=== PATIENT | male | born 1995 | race Two or more races ===

== ENCOUNTER 2023-09-25 16:05 | Emergency (ER) | payer OTHER ==
[~2023-09-25] VITALS: Ht 188 cm; Wt 127.5 kg
[2023-09-25 17:53] LABS: Basophils # (auto) 0.1 10 ^3/uL (0-0.2); Basophils % (auto) 0.4 % (0.0-2.0); Eosinophils # (auto) 0.2 10 ^3/uL (0-0.8); Eosinophils % (auto) 1.5 % (0.0-7.0); Hematocrit 43.2 % (41.0-53.0); Lymphocytes # (auto) 3.5 10 ^3/uL (0.4-5.4); Lymphocytes % (auto) 29.7 % (10.0-50.0); Mean Corpuscular Hgb Conc. 32.4 g/dL (32.0-36.0); Mean Corpuscular Volume 86.5 fL (80.0-100.0); Monocytes # (auto) 0.8 10 ^3/uL (0-1.3); Monocytes % (auto) 7.1 % (0.0-12.0); Neutrophils # (auto) 7.3 10 ^3/uL (1.6-8.6); Neutrophils % (auto) 61.3 % (37.0-80.0); Nucleated Red Blood Cells % 0.1 %; Red Cell Distribution Width 13.2 % (11.8-14.3); White Blood Cell 11.9 10^3/uL (4.4-10.8)
[2023-09-25 18:07] LABS: Alanine Aminotransferase 24 U/L (7-40); Albumin 4.9 g/dL (3.2-4.8); Alkaline Phosphatase 120 U/L (46-116); Anion Gap 4 (5-15); Aspartate Aminotransferase 15 U/L (13-40); BUN/Creatinine Ratio 8.3 (10.0-20.0); Blood Urea Nitrogen 6 mg/dL (9-23); Calcium 9.2 mg/dL (8.7-10.4); Carbon Dioxide 27 mmol/L (20-30); Chloride 103 mmol/L (98-107); Glucose 101 mg/dL (74-106); Lipase 30 U/L (12-53); Potassium 4.6 mmol/L (3.5-5.1); Sodium 134 mmol/L (136-145)
[2023-09-25 18:08] LABS: Bilirubin, Total 0.4 mg/dL (0.2-1.0); Total Protein 7.9 g/dL (5.7-8.2)
[2023-09-25 18:23] LABS: Urine Bacteria NONE SEEN /hpf (None Seen); Urine Blood Negative /uL (Negative); Urine Clarity Clear (Clear); Urine Color Yellow (Yellow); Urine Protein, UAD Negative (Negative); Urine Urobilinogen Normal (Negative); Urine WBC 3 /hpf (0 - 3)
[2023-09-25] MEDS ORDERED: OMEP-448 PO (21:27)
[2023-09-25] MEDS ORDERED: ZOFR4T PO (21:27)
[2023-09-25] MEDS ORDERED: LIDOCAINE VISCOUS 2% 15ML UD MT ONE (21:30)
[2023-09-25] MEDS ORDERED: MAALOX PLUS or MAALOX 30 ML PO ONE (21:30)
[2023-09-25 21:41] VITALS: BP 114/69; PULSE 79; RESP 20; TEMP 98.4; O2SAT 99
== END 2023-09-25 21:50 | disposition home or self-care (01) ==
LOC: ER 16:05
DX: K52.9 Noninfective gastroenteritis and colitis, unspecified (principal); K27.9 Peptic ulcer, site unspecified, unspecified as acute or chronic, without hemorrhage or perforation
CPT/HCPCS: 36415; 80053; 81001; 83690; 85025

== ENCOUNTER 2023-10-13 19:47 | Emergency (ER) | payer OTHER ==
[~2023-10-13] VITALS: Ht 188 cm; Wt 126.0 kg
[~2023-10-13 19:47] MED LIST: BENZ100C97 PO; IBUP1TAB5 PO; OMEP-448 PO; PROM1SOL4 PO; ZOFR4T PO
[2023-10-14 00:28] LABS: COVID19 ANTIGEN SOFIA FIA NEGATIVE (NEGATIVE)
[2023-10-14] MEDS ORDERED: IPRATROPIUM BROM 0.5 MG/2.5ML INH SOL NEB ONE (00:45)
[2023-10-14] MEDS ORDERED: ALBUTEROL SULF 2.5 MG/0.5ML(0.5%) NEB SOLN NEB ONE (00:45)
[2023-10-14] MEDS ORDERED: guaiFENesin-CODEINE Liq 5 ML UD PO ONE (00:45)
[2023-10-14] MEDS ORDERED: DexAMETHasone SOD PHOS 10MG/1ML VIAL INJ IM ONE (00:45)
[2023-10-14] MEDS ORDERED: BENZ200C64 PO (00:48)
[2023-10-14] MEDS ORDERED: ALBU108A5 IN (00:48)
[2023-10-14] MEDS ORDERED: PRED20TA2 PO (00:48)
[2023-10-14] MEDS ORDERED: CEPH500C PO (00:48)
[2023-10-14 02:30] VITALS: BP 129/84; PULSE 88; RESP 20; TEMP 97.8; O2SAT 98
== END 2023-10-14 02:37 | disposition home or self-care (01) ==
LOC: ER 19:47
DX: J20.9 Acute bronchitis, unspecified (principal); K80.20 Calculus of gallbladder without cholecystitis without obstruction; Z20.822 Contact with and (suspected) exposure to COVID-19; Z79.899 Other long term (current) drug therapy
CPT/HCPCS: 36415; 71045; 87426; 94640; 96372; 99284; J1100; J7644

== ENCOUNTER 2023-11-17 18:48 | Emergency (ER) | payer OTHER ==
[~2023-11-17] VITALS: Ht 188 cm; Wt 126.0 kg
[~2023-11-17 18:48] MED LIST changes: +ALBU108A5 IN; +AZITTAB PO; +BENZ200C64 PO; +BENZLOZ2 MT; +CEPH500C PO; +PRED20TA2 PO
[2023-11-17 19:22] VITALS: BP 114/82; RESP 20; O2SAT 97
[2023-11-17 19:45] LABS: Basophils # (auto) 0.1 10 ^3/uL (0-0.2); Basophils % (auto) 0.6 % (0.0-2.0); Eosinophils # (auto) 0.2 10 ^3/uL (0-0.8); Eosinophils % (auto) 1.3 % (0.0-7.0); Hematocrit 40.7 % (41.0-53.0); Hemoglobin 13.4 g/dL (13.5-17.5); Lymphocytes % (auto) 29.7 % (10.0-50.0); Mean Corpuscular Hemoglobin 28.3 pg (28.0-32.0); Mean Corpuscular Hgb Conc. 32.8 g/dL (32.0-36.0); Mean Corpuscular Volume 86.2 fL (80.0-100.0); Monocytes % (auto) 7.1 % (0.0-12.0); Neutrophils # (auto) 8.3 10 ^3/uL (1.6-8.6); Neutrophils % (auto) 61.3 % (37.0-80.0); Nucleated Red Blood Cells % 0.1 %; Red Blood Cells 4.73 10^6/uL (4.5-5.90); Red Cell Distribution Width 14.2 % (11.8-14.3); White Blood Cell 13.5 10^3/uL (4.4-10.8)
[2023-11-17 19:56] LABS: Chloride 106 mmol/L (98-107); Potassium 3.8 mmol/L (3.5-5.1); Sodium 138 mmol/L (136-145)
[2023-11-17 19:57] LABS: Anion Gap 8 (5-15); Calcium 9.1 mg/dL (8.7-10.4); Carbon Dioxide 24 mmol/L (20-30)
[2023-11-17 20:02] LABS: BUN/Creatinine Ratio 13.8 (10.0-20.0); Blood Urea Nitrogen 11 mg/dL (9-23); Glucose 138 mg/dL (74-106)
[2023-11-17 20:50] VITALS: PULSE 78
== END 2023-11-17 21:41 | disposition home or self-care (01) ==
LOC: ER 18:48
DX: M79.18 Myalgia, other site (principal); M54.6 Pain in thoracic spine; R06.02 Shortness of breath; D72.829 Elevated white blood cell count, unspecified
CPT/HCPCS: 36415; 71046; 80048; 85025; 85379; 93005